=== PATIENT | female | born 1960 | race Caucasian/White ===

== ENCOUNTER → 2016-05-12 | Outpatient (CLI) | payer OTHER | LOC: LAB 09:46 | PROVIDERS: ATTEND Physician Assistant | DX: E55.9 Vitamin D deficiency, unspecified (principal) | CPT/HCPCS: 82306 ==

== ENCOUNTER → 2016-06-05 | Outpatient (CLI) | payer OTHER | LOC: LAB 11:09 | DX: R30.0 Dysuria (principal); R82.99 Other abnormal findings in urine | CPT/HCPCS: 87088 ==

== ENCOUNTER → 2016-08-01 | Outpatient (CLI) | payer OTHER | LOC: MMPC 11:11 | PROVIDERS: ATTEND Physician Assistant | DX: J32.9 Chronic sinusitis, unspecified (principal) | CPT/HCPCS: 99213; G0463 ==

== ENCOUNTER → 2016-09-08 | Outpatient (CLI) | payer OTHER ==
[2016-09-08 17:43] LABS: BASOPHILS # (AUTO) 0.02 10*3/UL; BASOPHILS % (AUTO) 0.2 % (0-1); EOSINOPHILS # (AUTO) 0.23 10*3/UL; EOSINOPHILS % (AUTO) 2.9 % (0-8); HEMATOCRIT 39.5 % (37.0-47.0); HEMOGLOBIN 12.9 g/dL (12.0-16.0); MEAN CORPUSCULAR HGB CONC 32.7 g/dL (33-37); MEAN CORPUSCULAR VOLUME 82.6 FL (81-99); MEAN PLATELET VOLUME 10.3 FL (7.4-12.2); MONOCYTES # (AUTO) 0.52 10*3/UL (0.3-0.8); MONOCYTES % (AUTO) 6.5 % (5-15); NEUTROPHILS # (AUTO) 4.94 10*3/UL; NEUTROPHILS % (AUTO) 61.4 % (50-80); RED BLOOD COUNT 4.78 10^6/uL (4.20-5.40)
[2016-09-08 17:49] LABS: BLOOD UREA NITROGEN 16 mg/dL (7-22); BUN/CREATININE RATIO 17.77 (6-20); CALCIUM 8.9 mg/dL (8.7-10.7); CHOL/HDL RATIO 3.13 RATIO (0-4.0); EST GLOMERULAR FILTRATION > 60 (>60 ml/min/1.73m(2)); HDL CHOLESTEROL 59 mg/dL (40-150); SERUM ALBUMIN 3.8 g/dL (3.5-4.8); SERUM CHOLESTEROL 185 mg/dL (120-200)
[2016-09-08 17:52] LABS: PLATELET MORPHOLOGY COMMENT NORMAL MORPHOLOGY (NORM); RBC MORPHOLOGY COMMENT NORMAL MORPHOLOGY (NORM); WBC MORPHOLOGY COMMENT NORMAL MORPHOLOGY (NORM)
[2016-09-08 18:01] LABS: HEMOGLOBIN A1C 5.72 % (4.2-6.0)
[2016-09-11 13:32] LABS: ERYTHROPOIETIN, SERUM 25.2 mIU/mL (2.6 - 18.5)
[2016-09-11 14:31] LABS: A/G RATIO 0.83 (()); ALB PEP SER 3.1 g/dL (3.4-4.7); ALP1 GLOB 0.3 g/dL (0.1-0.3); ALP2 GLOB 1.2 g/dL (0.6-1.0); GAMMA GLOBS 1.2 g/dL (0.6-1.6)
== END ==
LOC: LAB 10:34
PROVIDERS: ATTEND Nurse Practitioner Family
DX: D50.9 Iron deficiency anemia, unspecified (principal); I10 Essential (primary) hypertension; R11.0 Nausea; R73.09 Other abnormal glucose; R42 Dizziness and giddiness; R60.0 Localized edema; M17.0 Bilateral primary osteoarthritis of knee; K21.9 Gastro-esophageal reflux disease without esophagitis; Z11.59 Encounter for screening for other viral diseases
CPT/HCPCS: 80053; 80061; 82668; 82728; 83010; 83036; 83540; 83550; 84155; 84165; 84466; 85025; 85045; 86803

== ENCOUNTER → 2016-10-07 | Outpatient (CLI) | payer OTHER ==
[2016-10-07 17:26] LABS: BASOPHILS # (AUTO) 0.03 10*3/UL; BASOPHILS % (AUTO) 0.4 % (0-1); EOSINOPHILS % (AUTO) 2.6 % (0-8); HEMATOCRIT 39.4 % (37.0-47.0); HEMOGLOBIN 12.8 g/dL (12.0-16.0); LYMPHOCYTES # (AUTO) 2.05 10*3/uL; MEAN CORPUSCULAR HEMOGLOBIN 26.5 PG (27-31); MEAN CORPUSCULAR HGB CONC 32.5 g/dL (33-37); MEAN CORPUSCULAR VOLUME 81.6 FL (81-99); MEAN PLATELET VOLUME 10.4 FL (7.4-12.2); MONOCYTES # (AUTO) 0.53 10*3/UL (0.3-0.8); NEUTROPHILS # (AUTO) 4.78 10*3/UL; NEUTROPHILS % (AUTO) 62.9 % (50-80); PLATELET MORPHOLOGY COMMENT NORMAL MORPHOLOGY (NORM); RBC MORPHOLOGY COMMENT NORMAL MORPHOLOGY (NORM); RED BLOOD COUNT 4.83 10^6/uL (4.20-5.40); WBC MORPHOLOGY COMMENT NORMAL MORPHOLOGY (NORM)
[2016-10-07 17:30] LABS: BLOOD UREA NITROGEN 13 mg/dL (7-22); BUN/CREATININE RATIO 14.44 (6-20); CALCIUM 8.6 mg/dL (8.7-10.7); EST GLOMERULAR FILTRATION > 60 (>60 ml/min/1.73m(2)); SERUM ALBUMIN 3.6 g/dL (3.5-4.8)
== END ==
LOC: LAB 10:10
PROVIDERS: ATTEND Internal Medicine
DX: D64.9 Anemia, unspecified (principal)
CPT/HCPCS: 80053; 82607; 82746; 83615; 85025; 85045